=== PATIENT | male | born 1980 | race Caucasian/White ===

== ENCOUNTER 2021-08-20 14:55 | Outpatient (CLI) | payer OTHER, BC ==
--- NOTE | 2021-08-20 17:15 | XRAY Report ---
PROCEDURE: Ankle 3 View LT INDICATIONS: SPRAIN OF LIGAMENT OF L ANKLE TECHNIQUE: 3 views of the ankle were acquired. COMPARISON: None FINDINGS: Bones: No fractures or dislocations. Ankle mortise is normally aligned. No suspicious bony lesions . Soft tissues: No tibiotalar joint effusion. Achilles tendon appears normal. IMPRESSION: No fracture. No osseous lesion. If there are persistent symptoms or continued clinical concern for pa thology, then repeat plain film radiographs (7-10 days) or advanced imaging (CT, MR, bone scan) shoul d be considered for further evaluation. Reviewed by: Anahy Suazo MD, PhD on 08/20/2021 5:13 PM PST Approved by: Anahy Suazo MD, PhD on 08/20/2021 5:13 PM PST Station ID: [id number]
== END 2021-08-20 23:59 | disposition home or self-care (01) ==
LOC: DI.N 14:55
PROVIDERS: ATTEND Physician Assistant Medical
DX: S93.492D Sprain of other ligament of left ankle, subsequent encounter (principal)